=== PATIENT | male | born 1940 | race African-American/Black ===

== ENCOUNTER 2017-12-18 10:41 | Day surgery (SDC) | payer OTHER ==
[~2017-12-18] VITALS: Ht 193 cm; Wt 120.3 kg
[~2017-12-18 10:41] MED LIST: Bactrim,Septra DS 80 PO; COLACE100 MG PO; COMPAZINE10 MG PO; DEXAMETHASONE4 MG PO; Duragesic TD; FLECTOR 1.3%1 PATC1 TD; JUBLIA4 ML TP; LISINOPRIL-HCT1 EAC3 PO; LYRICA50 MG PO; Lortab 7.5/500 PO; MULTI-DAY VITA1 EACH PO; NOLVADEX10 MG PO; NORCO 10/3251 TABLET PO; Norco 10/325 PO; OXAYDO5 MG PO; PARAFON FORTE500 MG PO; VITAMIN B COMP1 EACH PO; VITAMIN D31000 UNI2 PO; ZANAFLEX4 MG PO; ZOFRAN ODT8 MG PO; Zestril,Prinivil PO
[2017-12-18 11:17] VITALS: BP 182/103
[2017-12-18 16:45] VITALS: BP 165/77
[2017-12-18 18:00] VITALS: BP 185/80
[2017-12-18 18:30] VITALS: BP 145/81
== END 2017-12-18 18:52 | disposition home or self-care (01) ==
LOC: SDC 10:41
DX: M75.121 Complete rotator cuff tear or rupture of right shoulder, not specified as traumatic (principal); M75.21 Bicipital tendinitis, right shoulder; I10 Essential (primary) hypertension; Z85.3 Personal history of malignant neoplasm of breast; Z88.0 Allergy status to penicillin; E78.01 Familial hypercholesterolemia; Z87.891 Personal history of nicotine dependence
CPT/HCPCS: C1713; J0171; J0330; J0690; J1100; J1885; J2250; J2405; J2710; J2795; J3010